=== PATIENT | female | born 2000 | race Caucasian/White ===

== ENCOUNTER → 2023-01-05 10:47 | Outpatient (BNVA) | payer SELFPAY | PROVIDERS: Visit Provider Obstetrics & Gynecology | DX: Z34.90 Encounter for supervision of normal pregnancy, unspecified, unspecified trimester (principal) | CPT/HCPCS: 81000; 82950; 85025 ==

== ENCOUNTER → 2023-01-19 10:17 | Outpatient (BNVA) | payer SELFPAY | PROVIDERS: Visit Provider Obstetrics & Gynecology | DX: Z34.00 Encounter for supervision of normal first pregnancy, unspecified trimester (principal) | CPT/HCPCS: 81000 ==

== ENCOUNTER 2023-02-02 14:33 | Outpatient (CLI) | payer SELFPAY ==
[2023-02-02 14:40] VITALS: BMI 24.3
[2023-02-02 14:41] VITALS: BP 119/72; PULSE 81
[2023-02-02 15:02] VITALS: BP 116/71; PULSE 77
[2023-02-02 15:25] VITALS: BP 116/71; PULSE 77; RESP 16
== END 2023-02-02 15:25 | disposition home or self-care (01) ==
LOC: OPOB 14:34 → OBGYN 14:35
PROVIDERS: Visit Provider Obstetrics & Gynecology
DX: O36.8190 Decreased fetal movements, unspecified trimester, not applicable or unspecified (principal); Z3A.00 Weeks of gestation of pregnancy not specified
CPT/HCPCS: 36415; 59025; 81000; 85025; 99211

== ENCOUNTER → 2023-02-16 10:30 | Outpatient (BNVA) | payer SELFPAY | PROVIDERS: Visit Provider Obstetrics & Gynecology | DX: Z34.00 Encounter for supervision of normal first pregnancy, unspecified trimester (principal) | CPT/HCPCS: 81000; 87081 ==

== ENCOUNTER → 2023-02-19 08:40 | Outpatient (BNVA) | payer SELFPAY | PROVIDERS: Visit Provider Obstetrics & Gynecology | DX: Z34.00 Encounter for supervision of normal first pregnancy, unspecified trimester (principal) | CPT/HCPCS: 80202 ==

== ENCOUNTER → 2023-02-22 15:00 | Outpatient (BNVA) | payer SELFPAY | PROVIDERS: Visit Provider Obstetrics & Gynecology | DX: Z34.00 Encounter for supervision of normal first pregnancy, unspecified trimester (principal) | CPT/HCPCS: 81000 ==

== ENCOUNTER → 2023-03-02 15:28 | Outpatient (BNVA) | payer SELFPAY | PROVIDERS: Visit Provider Obstetrics & Gynecology | DX: Z34.00 Encounter for supervision of normal first pregnancy, unspecified trimester (principal) | CPT/HCPCS: 81000 ==

== ENCOUNTER 2023-03-09 16:56 | Inpatient (IN) | payer SELFPAY ==
[2023-03-09] VITALS (31 sets, daily range): BP systolic 107–122; BP diastolic 67–79; PULSE 65–93; RESP 17–18; TEMP 36.6; O2SAT 92–100; BMI 26.6
[2023-03-09 14:04] LABS: Basophils % 0.4 %; Eosinophils # 0.1 10^3/uL (0.0-0.8); Eosinophils % 0.8 %; Hematocrit 39.7 % (37.0-47.0); Hemoglobin 13.6 g/dL (11.5-15.3); Lymphocytes # 3.2 10^3/uL (0.8-4.8); Lymphocytes % 34.8 %; Mean Corpuscular HGB Conc 34.3 g/dL (30.0-36.0); Mean Corpuscular Hemoglobin 30.8 pg (28.0-34.0); Mean Corpuscular Volume 89.8 fl (81-99); Mean Platelet Volume 11.9 fL (7.4-10.4); Monocytes # 0.7 10^3/uL (0.2-0.9); Monocytes % 7.7 %; Neutrophils # 5.08 10^3/uL (1.8-7.7); Neutrophils % 56.1 %; Nucleated Red Blood Cells % 0 %; Platelet Count 210 10^3/cmm (130-400); Red Blood Count 4.42 10^6/uL (4.1-5.3); Red Cell Distribution Width 12.5 % (12.1-15.1); White Blood Count 9.1 10^3/uL (4.0-10.0)
[2023-03-09] MEDS: fentaNYL 50 mcg/mL INJ 2mL IVP (22:28)
[2023-03-09] MEDS: lactated ringers 1,000 ML 999 ML IV (22:49)
[2023-03-09] MEDS: dextrose 5%-lactated ringers 1,000 ML 125 ML IV (23:52)
--- NOTE | 2023-03-09 23:58 | ANES.PREANE2 ---
Pre-Anesthetic Assessment Height/Weight: Height 1.57 m Weight 66.224 kg Temp Pulse Resp BP Pulse Ox O2 Del Method 97.9 F 74 17 120/75 99 Room Air 03/09/23 20:29 03/09/23 23:49 03/09/23 22:28 03/09/23 23:49 03/09/23 23:46 03/09/23 20:29 Familial anesthetic complications: none Was Beta Rosa taken within 24 hours: N/A Was Clonidine taken within 24 hours: N/A Social No alcohol and No tobacco Exam alert, oriented x 3, clear to auscultation bilaterally and regular rate & rhythm Airway Submandibular: within normal limits Cervical ROM: within normal limits Mallampati: Class II Dentition: full History/ROS No significant history except as noted Anesthetic Plan ASA status: 2 Anesthesia: Regional (specify below) (Labor epi) Medications/Allergies Home Medications Medication Instructions Recorded Confirmed Last Taken Type 02/02/23 03/09/23 02/02/23 07:00 History Allergies Allergy/AdvReac Type Severity Reaction Status Date / Time No Known Allergies Allergy Unverified 03/09/23 08:46 Current Medications Generic Name Dose Route Start Last Admin Trade Name Freq PRN Reason Stop Dose Admin Fentanyl 25 - 100 mcg 03/09/23 13:52 03/09/23 22:28 Fentanyl 50 Mcg/Ml Inj 2ml IVP 25 mcg Q1H PRN Administration SEVERE PAIN PFSH Anesthesia Family History Denies family history of Colon cancer Ovarian cancer Diabetes Heart disease Hypercholesteremia Psychiatric illness Breast cancer Hypertension Uterine cancer Thyroid disease Stroke Female Reproductive History : 1 Data Anesthesia 03/09/23 13:45 Short CBC 03/09/23 Range/Units 13:45 WBC 9.1 (4.0-10.0) 10^3/uL Hgb 13.6 (11.5-15.3) g/dL Hct 39.7 (37.0-47.0) % MCV 89.8 (81-99) fl Plt Count 210 (130-400) 10^3/cmm Neut % (Auto) 56.1 % Neut # (Auto) 5.08 (1.8-7.7) 10^3/uL Cardiac Studies: No Data to Display Anesthesia Procedures Epidural Time Out Performed: Yes Consents Signed: Procedure Consent Consent: requested by attending/covering physician, from patient, risks and benefits reviewed and patient agrees to proceed Lumbar Level: L3-L4 Epidural position: sitting Epidural procedure: sterile prep of area, 1% lidocaine to numb the area, 18 g needle, neg for paresthesia, test dose given, 1.5% xylocaine 1:200k epi, 0.2% Ropivacaine bolus ml (5), placed PCEA, no systemic response and 0.2% Ropiavacaine @ mls/hr (10) Additional Comments: DILLAN at 4cm, cath at 9cm
[2023-03-10] VITALS (64 sets, daily range): BP systolic 81–182; BP diastolic 46–129; PULSE 47–214; RESP 16–17; TEMP 36.4–36.8; O2SAT 90–100
[2023-03-10] MEDS: lidocaine 2% INJ 20 mL INJECTION (05:54)
--- NOTE | 2023-03-10 06:13 | PM.DELIVERY ---
Delivery Note: Date of delivery: March 10, 2023 Pre-delivery diagnoses: [id number] Post-delivery diagnoses: same-delivered Procedure: VAVD Delivering Physician: Savannah Estimated blood loss (mL): 20 Findings: term male in the AIDA presentation with a single nuchal cord, reduced at the perineum. Second degree episiotomy without extension Pre-Delivery Course: The patient was admitted in active labor. She progressed to 3.5 cm and AROM was performed. She received an epidural for pain management. She progressed normally in labor and had complete cervical dilation. Delivery: The patient had complete cervical dilation and began to push. There was a heart deceleration down to the 60's for about 3 minutes. The heart rate slowly returned to the 100's. A decision was made to placed a vaccum. The baby was a +3 station at this time. The vacuum was placed over the occiput and with the next contraction was pumped into the green section of the device. I was able to move the baby to a +4 station before there was a pop off after about 30 seconds. A midline episiotomy was made with the next contraction. The patient pushed effectively, but became tired. The heart tones were again in the 60's after the contraction. The patient was unable to push and the heart tones remained in the 60's. Baby was still +4 station. I placed the vacuum again. Pumped it into the green section and guided the head to delivery. The vacuum was desufflated and removed. The head delivered in the AIDA position over a second degree episiotomy under epidural anesthesia. A single nuchal cord was reduced at the perineum. The nose and mouth were bulb suctioned. The shoulders and body delivered atraumatically. The baby was placed onto the mother's abdomen. The cord was clamped and cut. Cord blood was obtained. The placenta delivered spontaneously. It was inspected and found to be intact. Inspection of the perineum revealed a second-degree episiotomy without extension. It was repaired in the usual fashion.. Estimated blood loss 20 mL. Apgars on baby were 7 at 1 minute and 9 at 5 minutes. Weight of baby is 6 pounds 6 ounces. Mother and baby were stable post delivery. History History History 1 Term 0 Miscarriages/Ectopic Living Children Coding Level of Care Code Acute Code for Chg Fwd Diagnoses
--- NOTE | 2023-03-10 08:16 | ANE.PACU2 ---
Inpatient post-anesthesia follow up: Airway intact: Yes Vital signs: Temperature 97.9 F Pulse Rate 58 Respiratory Rate 17 Blood Pressure 110/61 Pulse Oximetry 98 Oxygen Delivery Me thod Room Air Oxygen Flow Rate Fraction of Inspir ed Oxygen Hydration adequate: Yes Nausea and vomiting: No Pain level: 2 Mental status: Baseline
[2023-03-10] MEDS: ibuprofen 800 mg tablet PO ×3 (09:08→20:14)
[2023-03-10] MEDS: docusate sodium 100 mg Capsule PO (09:08)
[2023-03-10] MEDS: prenatal vitamin Capsule 1 CAP PO (09:08)
[2023-03-10] MEDS: HYDROcodone-acetaminophen 5-325 mg Tablet PO (13:34)
[2023-03-10 20:31] LABS: Hematocrit 35.6 % (37.0-47.0); Mean Corpuscular HGB Conc 33.7 g/dL (30.0-36.0); Mean Corpuscular Hemoglobin 30.5 pg (28.0-34.0); Mean Corpuscular Volume 90.4 fl (81-99); Platelet Count 229 10^3/cmm (130-400); Red Blood Count 3.94 10^6/uL (4.1-5.3); Red Cell Distribution Width 12.5 % (12.1-15.1); White Blood Count 11.7 10^3/uL (4.0-10.0)
[2023-03-11] MEDS: HYDROcodone-acetaminophen 5-325 mg Tablet PO (00:14)
[2023-03-11 00:15] VITALS: BP 110/62; PULSE 82; RESP 15; TEMP 36.6; O2SAT 99
[2023-03-11 04:41] VITALS: BP 97/59; PULSE 82; RESP 14; TEMP 36.4; O2SAT 98
[2023-03-11] MEDS: prenatal vitamin Capsule 1 CAP PO (09:27)
[2023-03-11] MEDS: docusate sodium 100 mg Capsule PO (09:27)
[2023-03-11] MEDS: ibuprofen 800 mg tablet PO (09:27)
[2023-03-11 09:51] VITALS: BP 109/68; PULSE 74; RESP 16; TEMP 36.4
--- NOTE | 2023-03-11 11:09 | PM.OBGYDC ---
Discharge Providers [employer] Date of Admission: 03/09/23 16:56 Date of Discharge: 03/11/23 Attending Provider at Admission: Sapphire Nuñez MD Attending Provider at Discharge: Julian Hess MD Primary [employer]ERSON: Sunil Nuñez MD Reason for Visit Reason for Visit: poss labor Hospital Course Hospital Course patient s/p vaginal delivery without any complications Information Peripartum Data: Delivery Method: Operative Vaginal Physical Exam Const: COMMON NORMALS: no acute distress, patient oriented x3 and alert Resp: COMMON NORMALS: normal respiratory effort GI: COMMON NORMALS: Normal to inspection, nondistended, normoactive bowel sounds present, Soft to palpation and non-tender PALPATION: Yes Soft to palpation Extremity: COMMON NORMALS: normal to inspection Neuro: COMMON NORMALS: patient oriented x3 SENSORIUM/ORIENTATION: Yes alert Urinary Catheter Management: Garza: Cath Placed During This Visit: yes, but has since been removed by the nurse Reason for Continuing Indwelling Catheter: Other Urinary Catheter Date of Insertion: 03/10/23 Urinary Catheter Time of Insertion: 01:05 Date Urinary Catheter Removed: 03/10/23 Time Urinary Catheter Discontinued: 05:16 History History History 1 Term 0 Miscarriages/Ectopic Living Children Discharge Data Studies Completed and Pending Laboratory Results WBC 11.7 10^3/uL (4.0-10.0) H 03/10/23 20:09 RBC 3.94 10^6/uL (4.1-5.3) L 03/10/23 20:09 Hgb 12.0 g/dL (11.5-15.3) 03/10/23 20:09 Hct 35.6 % (37.0-47.0) L 03/10/23 20:09 MCV 90.4 fl (81-99) 03/10/23 20:09 MCH 30.5 pg (28.0-34.0) 03/10/23 20:09 MCHC 33.7 g/dL (30.0-36.0) 03/10/23 20:09 RDW 12.5 % (12.1-15.1) 03/10/23 20:09 Plt Count 229 10^3/cmm (130-400) 03/10/23 20:09 MPV 12.0 fL (7.4-10.4) H 03/10/23 20:09 Neut % (Auto) 56.1 % 03/09/23 13:45 Lymph % (Auto) 34.8 % 03/09/23 13:45 [place] % (Auto) 7.7 % 03/09/23 13:45 Eos % (Auto) 0.8 % 03/09/23 13:45 Baso % (Auto) 0.4 % 03/09/23 13:45 Neut # (Auto) 5.08 10^3/uL (1.8-7.7) 03/09/23 13:45 Lymph # (Auto) 3.2 10^3/uL (0.8-4.8) 03/09/23 13:45 [place] # (Auto) 0.7 10^3/uL (0.2-0.9) 03/09/23 13:45 Eos # (Auto) 0.1 10^3/uL (0.0-0.8) 03/09/23 13:45 Baso # (Auto) 0.0 10^3/uL (0.0-0.1) 03/09/23 13:45 Nucleated RBC % (auto) 0 % 03/09/23 13:45 Nucleated RBCs # 0.0 /100WBC 03/09/23 13:45 Procedures Performed Vaginal delivery Vitals Last Vital Signs Temp 97.5 F L 03/11/23 09:51 Pulse 74 03/11/23 09:51 Resp 16 03/11/23 09:51 BP 109/68 03/11/23 09:51 Pulse Ox 98 03/11/23 04:41 O2 Del Method Room Air 03/11/23 09:51 Discharge Plan Discharge Patient Disposition: Home Condition: Stable Prescriptions: Continued Discharge Orders: Discharge Order (Routine); Ordered 03/11/23 Ordered By: Julian Hess Discharge Diet: Usual diet Discharge Activity: Resume usual activity Patient Instructions: Depression (GEN), Bleeding (GEN), Preeclampsia and Eclampsia After Delivery (GEN), Hemorrhage (GEN), OB Discharge Report, OB Food/Drug Interaction Guide, OB Care at Home, Opioid Safety, OB Proud Parent Packet, OB Vaginal Deliveries - [facility] Discharge Attestations [employer] Time Spent in Discharge Care*: less than 30 min Coding Level of Care Code Acute Code for Chg Fwd Diagnoses Time Spent (min) 20
[2023-03-11 12:27] VITALS: BP 107/64; PULSE 62; RESP 14; TEMP 36.8
--- NOTE | 2023-03-11 12:29 | PC.NURSE ---
This nurse informed patient that she was rubella non-immune and qualified for the MMR vaccine. Patient declined to receive the MMR vaccine at this time.
== END 2023-03-11 12:30 | disposition home or self-care (01) | DRG 807 ==
LOC: OPOB 16:56 → OBGYN 16:56
PROVIDERS: Admitting Provider Obstetrics & Gynecology; Visit Provider Obstetrics & Gynecology
DX: O69.2XX0 Labor and delivery complicated by other cord entanglement, with compression, not applicable or unspecified (principal); Z37.0 Single live birth; O76 Abnormality in fetal heart rate and rhythm complicating labor and delivery; O70.1 Second degree perineal laceration during delivery; Z3A.39 39 weeks gestation of pregnancy
CPT/HCPCS: 36415; 51702; 59025; 81000; 85025; 85027; 99211; J2795; J3010; J7040; J7120; J7121